=== PATIENT | male | born 1995 | race Caucasian/White ===

== ENCOUNTER 2017-12-24 09:20 | Emergency (ER) | payer BC ==
--- NOTE | 2017-12-24 09:41 | EDM.PDOC ---
ED HPI GENERAL MEDICAL PROBLEM - General Chief Complaint: Back Pain or Injury Stated Complaint: LOWER BACK PAIN Time Seen by Provider: 12/24/17 09:25 - History of Present Illness INITIAL COMMENTS - FREE TEXT/NARRATIVE: HISTORY AND PHYSICAL: History of present illness: The patient is a healthy 22-year-old male who works as a local company flatbed truck driver and comes from [place] and is thinking about relocating here and is currently living here and presents with bilateral posterior lower ribs/thoracic pain that has been ongoing for the last several weeks waxing and waning in intensity and today having an episode of coughing that caused him to have anterior lower rib pain left greater than right. The patient says that he has had this on again off again bilateral posterior lower rib discomfort that he describes as an aching with occasional stabbing does not miss early associated with activity. He is not had any fevers chills coughing or shortness of breath until this morning when he was clearing his throat and had a slight cough and the pain seemed to intensify and radiated to the front of his lower ribs bilaterally. He says that there is more discomfort with movement and deep breathing but he doesn 't have specific abdominal pain. He had no nausea or vomiting no fevers no chills and he took nothing for pain prior to coming here. The patient denies any lower extremity pain or swelling but does work as a local company flatbed truck driver. He does not lift heavy objects and has no history of trauma recently. He has no urinary complaints and has not had any GI pulmonary or cardiac history. He denies any midline back pain and has no bowel or bladder disturbances and has no lower back pain. He has no weakness numbness or tingling in his upper extremities. The patient is a smoker but denies any other drug use Review of systems: As per history of present illness and below otherwise all systems reviewed and negative. Past medical history: As per history of present illness and as reviewed below otherwise noncontributory. Surgical history: As per history of present illness and as reviewed below otherwise noncontributory. Social history: No reported history of drug or alcohol abuse. Family history: As per history of present illness and as reviewed below otherwise noncontributory. Physical exam: General: Well-developed well-nourished thin man who is nontoxic and vital signs have been reviewed by me. Patient moves easily in the ED and speaks clearly without breathlessness HEENT: Atraumatic, normocephalic, negative for conjunctival pallor or scleral icterus, mucous membranes moist, throat clear, neck supple, nontender, trachea midline. Lungs: Clear to auscultation, breath sounds equal bilaterally, chest nontender. Palpation of the posterior ribs bilaterally name unable to reproduce the pain exactly and is no crepitus or deformities. When the patient does engage and hot himself he does feel some slight discomfort in that same area. Patient has no wheezing or stridor Heart: S1S2, regular, negative for clicks, rubs, or JVD. Abdomen: Soft, nondistended, nontender. Negative for masses or hepatosplenomegaly. Negative for costovertebral tenderness. Pelvis: Stable nontender. Genitourinary: Deferred. Rectal: Deferred. Extremities: Atraumatic, negative for cords or calf pain. Neurovascular unremarkable. No pedal edema or leg asymmetry Neuro: Awake, alert, oriented. Cranial nerves II through XII unremarkable. Cerebellum unremarkable. Motor and sensory unremarkable throughout. Exam nonfocal. Diagnostics: Abdominal films with chest x-ray, thoracic spine films, EKG CBC CMP amylase lipase d-dimer UA Therapeutics: [employer] Discussed all testing results with the patient is comfortable with clinic follow -up and treatment of his discomfort symptomatically as it is likely more muscular from his explanation and our testing today. Advised him on reasons to return to the ED and I will give him anti-inflammatories as well as a muscle relaxer to try at home. He is aware of the x-ray findings with the slight curvature of the spine to the right in the thoracic region and some mild scoliosis in the lumbar spine. I will give him clinic referrals for follow-up and he feels comfortable with this care plan and will return if symptoms evolve Impression: Thoracic back pain and bilateral rib pain stable Definitive disposition and diagnosis as appropriate pending reevaluation and review of above. lower back Pain Score (Numeric/FACES): 7 - Related Data Allergies Allergy/AdvReac Type Severity Reaction Status Date / Time No Known Allergies Allergy Verified 12/24/17 09:29 Home Meds: Home Meds . [No Known Home Meds] 12/24/17 [History] Past Medical History HEENT History: Reports: Impaired Vision Cardiovascular History: Reports: None Respiratory History: Reports: None Gastrointestinal History: Reports: None Genitourinary History: Reports: Other (See Below) Other Genitourinary History: horseshoe kidney Musculoskeletal History: Reports: None Neurological History: Reports: None Psychiatric History: Reports: None Endocrine/Metabolic History: Reports: None Hematologic History: Reports: None Immunologic History: Reports: None Oncologic (Cancer) History: Reports: None Dermatologic History: Reports: None - Past Surgical History Head Surgeries/Procedures: Reports: None HEENT Surgical History: Reports: None Cardiovascular Surgical History: Reports: None Respiratory Surgical History: Reports: None GI Surgical History: Reports: Hernia, Abdominal Male Surgical History: Reports: None Endocrine Surgical History: Reports: None Neurological Surgical History: Reports: None Musculoskeletal Surgical History: Reports: None Oncologic Surgical History: Reports: None Dermatological Surgical History: Reports: None Social & Family History - Family History Family Medical History: Noncontributory - Tobacco Use Smoking Status *Q: Current Every Day Smoker Years of Tobacco use: 1 Packs/Tins Daily: 1 - Caffeine Use Caffeine Use: Reports: Coffee, Energy Drinks, Soda - Recreational Drug Use Recreational Drug Use: No ED ROS GENERAL - Review of Systems Review Of Systems: ROS reveals no pertinent complaints other than HPI. ED EXAM, GENERAL - Physical Exam Exam: See Below (See dictation) Course - Vital Signs Last Recorded V/S: Last Vital Signs Temp 36.7 C 12/24/17 09:29 Pulse 96 12/24/17 09:29 Resp 18 12/24/17 09:29 BP 108/64 12/24/17 09:29 Pulse Ox 96 12/24/17 09:29 - Orders/Labs/Meds Orders: Active Orders 24 hr Category Date Time Status EKG Documentation Completion [RC] STAT Care 12/24/17 09:41 Active Abdomen Series w Chest 1V [CR] Stat Exams 12/24/17 09:39 Taken Thoracic Spine 3V [CR] Stat Exams 12/24/17 09:39 Taken UA W/MICROSCOPIC [URIN] Stat Lab 12/24/17 09:45 Ordered Labs: Laboratory Tests 12/24/17 12/24/17 12/24/17 Range/Units 09:45 09:49 09:49 WBC 4.71 (4.0-11.0) K/uL RBC 5.31 (4.50-5.90) M/uL Hgb 15.0 (13.0-17.0) g/dL Hct 44.3 (38.0-50.0) % MCV 83.4 (80.0-98.0) fL MCH 28.2 (27.0-32.0) pg MCHC 33.9 (31.0-37.0) g/dL RDW Std Deviation 38.7 (28.0-62.0) fl RDW Coeff of Romy 13 (11.0-15.0) % Plt Count 186 (150-400) K/uL MPV 9.40 (7.40-12.00) fL Neut % (Auto) 68.2 (48.0-80.0) % Lymph % (Auto) 22.5 (16.0-40.0) % Gentry % (Auto) 8.3 (0.0-15.0) % Eos % (Auto) 0.6 (0.0-7.0) % Baso % (Auto) 0.4 (0.0-1.5) % Neut # (Auto) 3.2 (1.4-5.7) K/uL Lymph # (Auto) 1.1 (0.6-2.4) K/uL Gentry # (Auto) 0.4 (0.0-0.8) K/uL Eos # (Auto) 0.0 (0.0-0.7) K/uL Baso # (Auto) 0.0 (0.0-0.1) K/uL Nucleated RBC % 0.0 /100WBC Nucleated RBCs # 0 K/uL D-Dimer, Quantitative (0.0-0.52) mg/LFEU Sodium 144 (136-148) mmol/L Potassium 3.8 (3.5-5.1) mmol/L Chloride 107 (98-107) mmol/L Carbon Dioxide 29.4 (21.0-32.0) mmol/L BUN 13 (7.0-18.0) mg/dL Creatinine 1.2 (0.8-1.3) mg/dL Est Cr Clr Drug Dosing 105.63 mL/min Estimated GFR (MDRD) > 60.0 ml/min Glucose 99 (74-106) mg/dL Calcium 9.5 (8.5-10.1) mg/dL Total Bilirubin 0.6 (0.2-1.0) mg/dL AST 16 (15-37) IU/L ALT 17 (14-63) IU/L Alkaline Phosphatase 46 (46-116) U/L Total Protein 7.6 (6.4-8.2) g/dL Albumin 4.2 (3.4-5.0) g/dL Globulin 3.4 (2.0-3.5) g/dL Albumin/Globulin Ratio 1.2 L (1.3-2.8) Amylase 70 (25-115) U/L Lipase 129 (73-393) U/L Urine Color YELLOW Urine Appearance CLEAR Urine pH 6.0 (5.0-8.0) Ur Specific [place] 1.015 (1.001-1.035) Urine Protein NEGATIVE (NEGATIVE) mg/dL Urine Glucose (UA) NEGATIVE (NEGATIVE) mg/dL Urine Ketones NEGATIVE (NEGATIVE) mg/dL Urine Occult Blood NEGATIVE (NEGATIVE) Urine Nitrite NEGATIVE (NEGATIVE) Urine Bilirubin NEGATIVE (NEGATIVE) Urine Urobilinogen 0.2 (<2.0) EU/dL Ur Leukocyte Esterase NEGATIVE (NEGATIVE) Urine RBC NONE SEEN (0-2/HPF) Urine WBC 0-2 (0-5/HPF) Ur Squamous Epith Cells NOT SEEN Urine Bacteria NOT SEEN (NEGATIVE) 12/24/17 Range/Units 09:49 WBC (4.0-11.0) K/uL RBC (4.50-5.90) M/uL Hgb (13.0-17.0) g/dL Hct (38.0-50.0) % MCV (80.0-98.0) fL MCH (27.0-32.0) pg MCHC (31.0-37.0) g/dL RDW Std Deviation (28.0-62.0) fl RDW Coeff of Romy (11.0-15.0) % Plt Count (150-400) K/uL MPV (7.40-12.00) fL Neut % (Auto) (48.0-80.0) % Lymph % (Auto) (16.0-40.0) % Gentry % (Auto) (0.0-15.0) % Eos % (Auto) (0.0-7.0) % Baso % (Auto) (0.0-1.5) % Neut # (Auto) (1.4-5.7) K/uL Lymph # (Auto) (0.6-2.4) K/uL Gentry # (Auto) (0.0-0.8) K/uL Eos # (Auto) (0.0-0.7) K/uL Baso # (Auto) (0.0-0.1) K/uL Nucleated RBC % /100WBC Nucleated RBCs # K/uL D-Dimer, Quantitative 0.52 (0.0-0.52) mg/LFEU Sodium (136-148) mmol/L Potassium (3.5-5.1) mmol/L Chloride (98-107) mmol/L Carbon Dioxide (21.0-32.0) mmol/L BUN (7.0-18.0) mg/dL Creatinine (0.8-1.3) mg/dL Est Cr Clr Drug Dosing mL/min Estimated GFR (MDRD) ml/min Glucose (74-106) mg/dL Calcium (8.5-10.1) mg/dL Total Bilirubin (0.2-1.0) mg/dL AST (15-37) IU/L ALT (14-63) IU/L Alkaline Phosphatase (46-116) U/L Total Protein (6.4-8.2) g/dL Albumin (3.4-5.0) g/dL Globulin (2.0-3.5) g/dL Albumin/Globulin Ratio (1.3-2.8) Amylase (25-115) U/L Lipase (73-393) U/L Urine Color Urine Appearance Urine pH (5.0-8.0) Ur Specific [place] (1.001-1.035) Urine Protein (NEGATIVE) mg/dL Urine Glucose (UA) (NEGATIVE) mg/dL Urine Ketones (NEGATIVE) mg/dL Urine Occult Blood (NEGATIVE) Urine Nitrite (NEGATIVE) Urine Bilirubin (NEGATIVE) Urine Urobilinogen (<2.0) EU/dL Ur Leukocyte Esterase (NEGATIVE) Urine RBC (0-2/HPF) Urine WBC (0-5/HPF) Ur Squamous Epith Cells Urine Bacteria (NEGATIVE) Departure - Departure Time of Disposition: 11:03 Disposition: Home, Self-Care 01 Condition: Good Clinical Impression: Thoracic back pain Qualifiers: Chronicity: unspecified Back pain laterality: bilateral Qualified Code(s): M54.6 - Pain in thoracic spine - Discharge Information Referrals: PCP,None [Primary Care Provider] - Forms: ED Department Discharge Additional Instructions: The following information is given to patients seen in the emergency department who are being discharged to home. This information is to outline your options for follow-up care. We provide all patients seen in our emergency department with a follow-up referral. The need for follow-up, as well as the timing and circumstances, are variable depending upon the specifics of your emergency department visit. If you don't have a primary care physician on staff, we will provide you with a referral. We always advise you to contact your personal physician following an emergency department visit to inform them of the circumstance of the visit and for follow-up with them and/or the need for any referrals to a consulting specialist. The emergency department will also refer you to a specialist when appropriate. This referral assures that you have the opportunity for followup care with a specialist. All of these measure are taken in an effort to provide you with optimal care, which includes your followup. Under all circumstances we always encourage you to contact your private physician who remains a resource for coordinating your care. When calling for followup care, please make the office aware that this follow-up is from your recent emergency room visit. If for any reason you are refused follow-up, please contact the [facility] emergency department at and ask to speak to the emergency department charge nurse. [facility] Primary care- Internal Medicine and Family [address] [address] Use heat to areas of discomfort to open this up and if you do activities involving your back use ice and then switch to heat. Use all medications as prescribed and needed and please contact our clinic for follow-up appointment for further care and evaluation of this problem. Return to ER as needed and as discussed - My Orders Last 24 Hours: My Active Orders 12/24/17 09:39 Abdomen Series w Chest 1V [CR] Stat Thoracic Spine 3V [CR] Stat 12/24/17 09:41 EKG Documentation Completion [RC] STAT 12/24/17 09:45 UA W/MICROSCOPIC [URIN] Stat - Assessment/Plan Last 24 Hours: My Active Orders 12/24/17 09:39 Abdomen Series w Chest 1V [CR] Stat Thoracic Spine 3V [CR] Stat 12/24/17 09:41 EKG Documentation Completion [RC] STAT 12/24/17 09:45 UA W/MICROSCOPIC [URIN] Stat
[2017-12-24 10:15] LABS: CHLORIDE,CL 107 mmol/L (98-107); SODIUM,NA 144 mmol/L (136-148)
--- NOTE | 2017-12-25 14:56 | CR ---
EXAM DATE: 12/24/17 PATIENT'S AGE: 22 Patient: TAYE HENDRICKSON Facility: [place], [place] Site . Site : 1995 Study: XRay Spine Thoracic [id number]/22/2018 10:50:02 AM Ordering Physician: Doctor Monroe Final Report: HISTORY: Back pain. TECHNIQUE: Two views of the thoracic spine. COMPARISON: No prior. FINDINGS: Mild rightward curvature of the thoracic spine centered at the midthoracic level. Thoracic vertebral body height is maintained without fracture. Disc height is maintained. IMPRESSION: 1. Mild rightward curvature of the thoracic spine. 2. No fracture. 3. Vertebral body height and disc height maintained. Dictated by Jacky Skaggs MD @ 12/24/2017 10:52:21 AM Dictated by: Jacky Skaggs MD @ 12/24/2017 10:52:27 (Electronic Signature) Report Signed by Proxy. LINDA
--- NOTE | 2017-12-25 14:57 | CR ---
EXAM DATE: 12/24/17 PATIENT'S AGE: 22 Patient: TAYE HENDRICKSON Facility: [place], [place] Site . Site : 1995 Study: XRay Abdomen [id number]/22/2018 10:50:36 AM Ordering Physician: Doctor Monroe Final Report: HISTORY: Abdominal pain and coughing. COMPARISON: None. FINDINGS: Frontal view of the chest and supine upright views of the abdomen. The bowel gas pattern is within normal. No evidence for bowel obstruction or free intraperitoneal air. Moderate amount of stool present. Mild scoliosis of the lumbar spine. The lungs are clear. Heart size and pulmonary vascularity within normal limits. Costophrenic angles sharp. Dictated by Angelica Saul MD @ Dec 24 2017 10:51AM (Electronic Signature) Report Signed by Proxy. [facility] SYSTEM[facility]ad[facility]
== END 2017-12-24 11:26 | disposition home or self-care (01) ==
LOC: MW.ED 09:20
DX: M54.6 Pain in thoracic spine (principal); F17.210 Nicotine dependence, cigarettes, uncomplicated
CPT/HCPCS: 36415; 72072; 72072-26; 74022; 74022-26; 80053; 81001; 82150; 83690; 85025; 85379; 93005; 99283; 99284-25